=== PATIENT | male | born 1955 | race Caucasian/White ===

== ENCOUNTER 2016-10-06 22:28 | Emergency (ER) | payer BC ==
[~2016-10-06] VITALS: Ht 188 cm; Wt 72.7 kg
[2016-10-07] MEDS ORDERED: ERYTHROMYC1 APPLICAT BOTH EYES (03:55)
[2016-10-07 04:18] VITALS: BP 114/72
== END 2016-10-07 04:20 | disposition home or self-care (01) ==
LOC: EME 22:28
PROC: 5A2204Z Restoration of Cardiac Rhythm, Single (ICD-10-PCS; principal; 2016-10-06)
DX: I48.91 Unspecified atrial fibrillation (principal)
CPT/HCPCS: 93005; 99281; 99285; J7030